=== PATIENT | male | born 1930 | race Caucasian/White ===

== ENCOUNTER 2017-03-03 18:39 | Emergency (ER) | payer OTHER ==
[~2017-03-03] VITALS: Ht 177.8 cm; Wt 85.5 kg
[~2017-03-03 18:39] MED LIST: CENTRUM SILVER1 EAC3 PO; CENTRUM SILVER1 EACH; GLIPIZIDE ER2.5 MG; GLIPIZIDE XL5 MG PO; METFORMIN HCL1000 MG PO; PANTOPRAZOLE SO20 MG; PROTONIX40 MG PO
[2017-03-03 22:49] VITALS: BP 215/124
== END 2017-03-03 22:50 | disposition home or self-care (01) ==
LOC: EME 18:39
DX: M16.0 Bilateral primary osteoarthritis of hip (principal); M79.652 Pain in left thigh; R29.6 Repeated falls; I10 Essential (primary) hypertension; I48.91 Unspecified atrial fibrillation; Z79.01 Long term (current) use of anticoagulants; E11.9 Type 2 diabetes mellitus without complications; Z79.84 Long term (current) use of oral hypoglycemic drugs; Z87.19 Personal history of other diseases of the digestive system; Z88.6 Allergy status to analgesic agent
CPT/HCPCS: 70450; 73502; 73564; 99281; 99284